=== PATIENT | female | born 1950 | race Caucasian/White ===

== ENCOUNTER 2019-05-09 08:48 | Emergency (ER) | payer MEDICAID ==
[2019-05-09] MEDS: HYDROCODONE/APAP (10/325) TAB PO (09:39)
[2019-05-09] MEDS: KETOROLAC 60 MG INJ IM (09:39)
== END 2019-05-09 09:47 | disposition home or self-care (01) ==
LOC: FTE 09:47
DX: M17.0 Bilateral primary osteoarthritis of knee (principal)
CPT/HCPCS: 96372; 99284-25; J1885

== ENCOUNTER 2019-06-18 07:08 | Emergency (ER) | payer MEDICARE, MEDICAID ==
[2019-06-18] MEDS: KETOROLAC 60 MG INJ IM (08:03)
[2019-06-18] MEDS: DEXAMETHASONE 10 MG/ML 1 ML INJ IM (08:03)
== END 2019-06-18 08:37 | disposition home or self-care (01) ==
LOC: FTE 08:37
DX: M54.9 Dorsalgia, unspecified (principal); Z85.3 Personal history of malignant neoplasm of breast
CPT/HCPCS: 93005; 96372; 99284-25